=== PATIENT | male | born 1970 | race Caucasian/White ===

== ENCOUNTER 2018-10-01 11:31 | Emergency (ER) | payer MEDICAID ==
[~2018-10-01] VITALS: Ht 185.4 cm; Wt 99.0 kg
[2018-10-01] MEDS ORDERED: CefTRIAXone 2gm/D5W 50ml 50 ML IV ONE (13:20)
[2018-10-01 13:53] LABS: BASOPHILS % (AUTO) 0.3 % (0-1); EOSINOPHILS % (AUTO) 0.2 % (0-6); HEMATOCRIT 42.1 % (42.0-52.0); LYMPHOCYTES # (AUTO) 0.9 X10'3 (1.1-4.8); LYMPHOCYTES % (AUTO) 8.5 % (21-51); MEAN CORPUSCULAR HEMOGLOBIN 32.1 PG (27.0-31.0); MEAN CORPUSCULAR HGB CONC 35.5 g/dL (33.0-36.5); MEAN CORPUSCULAR VOLUME 90.4 FL (78-98); MEAN PLATELET VOLUME 7.2 FL (7.4-10.4); MONOCYTES # (AUTO) 0.8 X10'3 (0-0.9); MONOCYTES % (AUTO) 7.5 % (2-12); NEUTROPHILS # (AUTO) 8.9 X10'3 (1.8-7.7); NEUTROPHILS % (AUTO) 83.5 % (42-75); PLATELET COUNT 142 X10'3 (140-440); RED BLOOD COUNT 4.66 X10'6 (4.70-6.10); RED CELL DISTRIBUTION WIDTH 13.6 % (11.5-14.5); WHITE BLOOD COUNT 10.6 X10'3 (4.5-11.0)
[2018-10-01 14:06] LABS: GLUCOSE 107 MG/DL (70-104)
[2018-10-01 14:07] LABS: ALANINE AMINOTRANSFERASE 50 U/L (12-78); ALBUMIN 3.9 G/DL (3.4-5.0); ALKALINE PHOSPHATASE 75 IU/L (46-116); ANION GAP 11 (8-16); ASPARTATE AMINO TRANSFERASE 20 U/L (10-37); BILIRUBIN,TOTAL 0.8 MG/DL (0.1-1.0); BLOOD UREA NITROGEN 12 MG/DL (7-18); BUN/CREATININE RATIO 11.4 (5.4-32.0); CALCIUM 9.4 MG/DL (8.5-10.1); CHLORIDE 98 MMOL/L (99-107); CREATININE 1.05 MG/DL (0.60-1.10); POTASSIUM 3.9 MMOL/L (3.5-5.1); SODIUM 133 MMOL/L (135-145); TOTAL CARBON DIOXIDE 23.9 MMOL/L (24-32); TOTAL PROTEIN 7.9 G/DL (6.4-8.2); eGFR 75 ML/MIN
[2018-10-01] MEDS ORDERED: ketorolac trometh. 30mg/ml inj. IV ONE (14:50)
[2018-10-01] MEDS ORDERED: CEPH500C5 PO (15:53)
[2018-10-01 16:11] VITALS: BP 136/82
--- NOTE | 2018-10-04 12:46 | NUR ---
PT WAS CALLED FOR STATUS FOLLOW-UP, NO ANSWER, MSG LEFT TO CALL BACK FOR RESULTS AND ABX CHANGE
== END 2018-10-01 16:13 | disposition home or self-care (01) ==
LOC: ER 11:32
DX: L02.511 Cutaneous abscess of right hand (principal); L03.113 Cellulitis of right upper limb; G89.29 Other chronic pain; F17.200 Nicotine dependence, unspecified, uncomplicated; Z79.899 Other long term (current) drug therapy
CPT/HCPCS: 36415; 73120; 80053; 84145; 85025; 87070; 87077; 87186; 96365; 96375; 99284; J0696; J1885

== ENCOUNTER 2018-10-03 11:07 | Inpatient (IN) | payer MEDICAID ==
[~2018-10-03] VITALS: Ht 185.4 cm; Wt 106.0 kg
[~2018-10-03 11:07] MED LIST: CEPH500C5 PO
[2018-10-03] MEDS ORDERED: vancomycin/NS 1 GM ADD-VANTAGE 250 ML IV ONE (12:30)
[2018-10-03] MEDS ORDERED: piperacillin/tazo 3.375gm/50ml 50 ML IV ONE (12:30)
[2018-10-03 12:59] LABS: BASOPHILS % (AUTO) 0.3 % (0-1); EOSINOPHILS # (AUTO) 0.1 X10'3 (0-0.9); EOSINOPHILS % (AUTO) 0.5 % (0-6); HEMATOCRIT 40.3 % (42.0-52.0); HEMOGLOBIN 14.2 g/dl (14.0-17.9); LYMPHOCYTES # (AUTO) 0.9 X10'3 (1.1-4.8); LYMPHOCYTES % (AUTO) 7.6 % (21-51); MEAN CORPUSCULAR HEMOGLOBIN 31.5 PG (27.0-31.0); MEAN CORPUSCULAR HGB CONC 35.1 g/dL (33.0-36.5); MEAN CORPUSCULAR VOLUME 89.8 FL (78-98); MEAN PLATELET VOLUME 7.4 FL (7.4-10.4); MONOCYTES # (AUTO) 1.1 X10'3 (0-0.9); MONOCYTES % (AUTO) 9.2 % (2-12); NEUTROPHILS # (AUTO) 9.7 X10'3 (1.8-7.7); NEUTROPHILS % (AUTO) 82.4 % (42-75); PLATELET COUNT 175 X10'3 (140-440); RED BLOOD COUNT 4.49 X10'6 (4.70-6.10); RED CELL DISTRIBUTION WIDTH 13.3 % (11.5-14.5); WHITE BLOOD COUNT 11.7 X10'3 (4.5-11.0)
[2018-10-03 13:10] LABS: ALANINE AMINOTRANSFERASE 43 U/L (12-78); ALBUMIN 3.5 G/DL (3.4-5.0); ALBUMIN/GLOBULIN RATIO 0.8 (1.1-1.5); ALKALINE PHOSPHATASE 82 IU/L (46-116); ANION GAP 11 (8-16); ASPARTATE AMINO TRANSFERASE 20 U/L (10-37); BILIRUBIN,TOTAL 0.7 MG/DL (0.1-1.0); BLOOD UREA NITROGEN 9 MG/DL (7-18); BUN/CREATININE RATIO 8.6 (5.4-32.0); CHLORIDE 98 MMOL/L (99-107); CREATININE 1.05 MG/DL (0.60-1.10); GLUCOSE 114 MG/DL (70-104); POTASSIUM 3.3 MMOL/L (3.5-5.1); SODIUM 134 MMOL/L (135-145); TOTAL CARBON DIOXIDE 25.4 MMOL/L (24-32); eGFR 75 ML/MIN
[2018-10-03] MEDS ORDERED: OMEP40CA37 PO (13:52)
[2018-10-03] MEDS ORDERED: CYCL-1 PO (13:52)
[2018-10-03] MEDS ORDERED: morphine 4 MG/ML inj SYRINge IV ONE (14:25)
--- NOTE | 2018-10-03 15:28 | NUR ---
VANCO COMPLETE, PT UP AND TO BR
--- NOTE | 2018-10-03 15:41 | NUR ---
PATIENT SITIING ON BED,FAMILY AT BEDSIDE.
[2018-10-03] MEDS ORDERED: HYDR-4353 PO (16:29)
[2018-10-03] MEDS ORDERED: mag hydrox/Alum hydrox/simeth 30ml oral suspension PO PRN (16:35)
[2018-10-03] MEDS ORDERED: acetaminophen 325mg tablet PO PRN (16:35)
[2018-10-03] MEDS ORDERED: morphine 2 MG/ML inj. syringe IV PRN (16:35)
[2018-10-03] MEDS ORDERED: ondansetron/PF 4mg/2ml inj IV PRN (16:35)
[2018-10-03] MEDS ORDERED: magnesium hydroxide 30ml (MOM) UD suspension PO PRN (16:35)
[2018-10-03 17:00] VITALS: BP 126/84
--- NOTE | 2018-10-03 17:00 | NUR ---
Pt transferred from ER to 4013b via w/c to bed. Pt awake and alert. VSS. Pt reported R hand to R arm pain. [place] given for pain. R Hand red, swollen with ring finger abrasion- picture taken for chart. Elevated R hand on 2 pillows.
[2018-10-03] MEDS: normal saline 1000ml 1,000 ML IV SCH (17:19)
[2018-10-03] MEDS: HYDROcodone/acetaminophen 5mg/325mg tablet PO PRN ×2 (17:26→21:10)
[2018-10-03] MEDS ORDERED: potassium Cl 20 mEq SR tablet PO PRN (18:20)
[2018-10-03] MEDS ORDERED: potassium Cl 40MEQ/NS 500ml 500 ML IV PRN ×2 (18:20)
--- NOTE | 2018-10-03 19:00 | NUR ---
Patient in room [facility]TH[facility] 4013. I have received report from Kriss SIERRA and had the opportunity to ask questions and assume patient care.
[2018-10-03] MEDS: potassium Cl 20 mEq SR tablet PO PRN ×2 (19:13→23:06)
[2018-10-03] MEDS: clindamycin 600mg/D5W 50ml 50 ML IV SCH (19:42)
[2018-10-03] MEDS ORDERED: TRAZ-251 PO (21:21)
[2018-10-03] MEDS ORDERED: traZODone 50mg tablet PO ONE (21:55)
[2018-10-03 22:00] VITALS: BP 125/75
[2018-10-04] MEDS: clindamycin 600mg/D5W 50ml 50 ML IV SCH ×4 (01:51→20:35)
[2018-10-04] MEDS: HYDROcodone/acetaminophen 5mg/325mg tablet PO PRN ×3 (01:57→20:45)
[2018-10-04 02:00] VITALS: BP 118/74
[2018-10-04] MEDS: normal saline 1000ml 1,000 ML IV SCH ×3 (02:38→14:12)
[2018-10-04] MEDS: potassium Cl 20 mEq SR tablet PO PRN (03:19)
[2018-10-04] MEDS ORDERED: potassium CL 10mEq/100ml bag 100 ML IV PRN (03:21)
[2018-10-04 05:55] LABS: BASOPHILS % (AUTO) 0.3 % (0-1); EOSINOPHILS # (AUTO) 0.1 X10'3 (0-0.9); EOSINOPHILS % (AUTO) 0.8 % (0-6); HEMATOCRIT 34.3 % (42.0-52.0); HEMOGLOBIN 12.1 g/dl (14.0-17.9); LYMPHOCYTES # (AUTO) 1.2 X10'3 (1.1-4.8); LYMPHOCYTES % (AUTO) 15.4 % (21-51); MEAN CORPUSCULAR HEMOGLOBIN 31.6 PG (27.0-31.0); MEAN CORPUSCULAR HGB CONC 35.3 g/dL (33.0-36.5); MEAN CORPUSCULAR VOLUME 89.5 FL (78-98); MEAN PLATELET VOLUME 7.1 FL (7.4-10.4); MONOCYTES # (AUTO) 0.6 X10'3 (0-0.9); MONOCYTES % (AUTO) 7.6 % (2-12); NEUTROPHILS % (AUTO) 75.9 % (42-75); PLATELET COUNT 174 X10'3 (140-440); RED BLOOD COUNT 3.83 X10'6 (4.70-6.10); RED CELL DISTRIBUTION WIDTH 13.1 % (11.5-14.5); WHITE BLOOD COUNT 7.8 X10'3 (4.5-11.0)
[2018-10-04 06:00] VITALS: BP 119/80
--- NOTE | 2018-10-04 06:00 | NUR ---
Patient in room ORTHO 4013. I have received report from and had the opportunity to ask questions and assume patient care from MARIELA Dillard.
[2018-10-04 06:19] LABS: ALBUMIN 2.7 G/DL (3.4-5.0); ANION GAP 8 (8-16); BLOOD UREA NITROGEN 7 MG/DL (7-18); BUN/CREATININE RATIO 6.9 (5.4-32.0); CALCIUM 8.2 MG/DL (8.5-10.1); CHLORIDE 103 MMOL/L (99-107); CREATININE 1.01 MG/DL (0.60-1.10); GLUCOSE 106 MG/DL (70-104); POTASSIUM 4.1 MMOL/L (3.5-5.1); SODIUM 135 MMOL/L (135-145); eGFR 79 ML/MIN
[2018-10-04] MEDS ORDERED: CefTRIAXone 2gm/D5W 50ml 50 ML IV SCH (08:00)
[2018-10-04] MEDS: enoxaparin 40mg/0.4ml syringe SUBCUT SCH (08:36)
--- NOTE | 2018-10-04 09:18 | NUR ---
Placed 1st warm compress to pt R arm r/t swelling/cellulitis per MD verbal order for aprox 2hrs.
[2018-10-04] MEDS: levoFLOXACIN-Levaquin 500mg/D5 100 ML IV SCH (15:36)
[2018-10-04] MEDS: Potassium Cl inj 10 MEQ in normal saline 1000ml 1,000 ML IV SCH (15:37)
[2018-10-04 18:00] VITALS: BP 119/74
[2018-10-04] MEDS: lactobacillus rhamnosus 10,000 MMU CELLS/CAPSULE PO SCH (20:34)
[2018-10-04] MEDS ORDERED: traZODone 50mg tablet PO SCH (21:00)
[2018-10-04 22:00] VITALS: BP 120/74
[2018-10-05] MEDS: HYDROcodone/acetaminophen 5mg/325mg tablet PO PRN ×2 (00:55→05:14)
[2018-10-05] MEDS: clindamycin 600mg/D5W 50ml 50 ML IV SCH ×3 (02:17→14:07)
[2018-10-05 05:51] LABS: BASOPHILS % (AUTO) 0.5 % (0-1); EOSINOPHILS # (AUTO) 0.1 X10'3 (0-0.9); EOSINOPHILS % (AUTO) 1.6 % (0-6); HEMATOCRIT 34.8 % (42.0-52.0); HEMOGLOBIN 12.4 g/dl (14.0-17.9); LYMPHOCYTES # (AUTO) 1.3 X10'3 (1.1-4.8); LYMPHOCYTES % (AUTO) 21.6 % (21-51); MEAN CORPUSCULAR HEMOGLOBIN 31.9 PG (27.0-31.0); MEAN CORPUSCULAR HGB CONC 35.6 g/dL (33.0-36.5); MEAN CORPUSCULAR VOLUME 89.4 FL (78-98); MONOCYTES # (AUTO) 0.5 X10'3 (0-0.9); MONOCYTES % (AUTO) 7.8 % (2-12); NEUTROPHILS # (AUTO) 4.2 X10'3 (1.8-7.7); NEUTROPHILS % (AUTO) 68.5 % (42-75); PLATELET COUNT 204 X10'3 (140-440); RED CELL DISTRIBUTION WIDTH 13.5 % (11.5-14.5); WHITE BLOOD COUNT 6.2 X10'3 (4.5-11.0)
[2018-10-05 06:00] VITALS: BP 132/78
[2018-10-05 06:03] LABS: ALBUMIN 2.6 G/DL (3.4-5.0); ANION GAP 6 (8-16); BLOOD UREA NITROGEN 8 MG/DL (7-18); BUN/CREATININE RATIO 8.3 (5.4-32.0); CALCIUM 8.8 MG/DL (8.5-10.1); CHLORIDE 104 MMOL/L (99-107); CREATININE 0.96 MG/DL (0.60-1.10); GLUCOSE 105 MG/DL (70-104); SODIUM 138 MMOL/L (135-145); TOTAL CARBON DIOXIDE 27.8 MMOL/L (24-32); eGFR 83 ML/MIN
[2018-10-05] MEDS ORDERED: cyclobenzaprine 10mg tablet PO PRN (08:25)
[2018-10-05] MEDS ORDERED: HYDROcodone/acetaminophen 10/325mg tab PO PRN (08:25)
[2018-10-05] MEDS ORDERED: pantoprazole 40mg Tablet.DR PO SCH (08:27)
[2018-10-05] MEDS: enoxaparin 40mg/0.4ml syringe SUBCUT SCH (08:47)
[2018-10-05] MEDS: lactobacillus rhamnosus 10,000 MMU CELLS/CAPSULE PO SCH (08:48)
[2018-10-05] MEDS: Potassium Cl inj 10 MEQ in normal saline 1000ml 1,000 ML IV SCH (08:55)
[2018-10-05 10:00] VITALS: BP 106/76
[2018-10-05] MEDS: levoFLOXACIN-Levaquin 500mg/D5 100 ML IV SCH (10:23)
[2018-10-05] MEDS ORDERED: LEVO500T2 PO (10:38)
[2018-10-05] MEDS ORDERED: CLIN-5 PO (10:38)
--- NOTE | 2018-10-05 15:00 | NUR ---
Pt DCd home. All continuing Rx medications inc oral ABX called into [facility], [place], [place]. Pt denies worsening pain, SOB, resp distress, N/V, vertigo at DC. All medications administered as ordered no ase noted at DC. VSS, RR even unlabored, afebrile, HRR upon DC. All DC documents signed per protocol. Necessary DC documents sent home w/pt. Pt escorted ERNESTO by [facility] staff member. Pt ambulated independently. Pt is driving self home in personal vehicle. Pt thanked [facility] staff for his care.
[2018-10-06] MEDS ORDERED: levoFLOXACIN 500mg tablet PO SCH (11:00)
== END 2018-10-05 15:10 | disposition home or self-care (01) | DRG 383 ==
LOC: ER 11:08 → ORTHO 4S 17:08
PROVIDERS: ADMIT Family Medicine; ATTEND Internal Medicine
DX: L03.113 Cellulitis of right upper limb (principal); B95.4 Other streptococcus as the cause of diseases classified elsewhere; E87.6 Hypokalemia; G89.29 Other chronic pain; M54.9 Dorsalgia, unspecified; K21.9 Gastro-esophageal reflux disease without esophagitis; L02.511 Cutaneous abscess of right hand; Z87.891 Personal history of nicotine dependence
CPT/HCPCS: 36415; 80048; 80053; 83605; 84145; 85025; 85610; 87040; 87070; 96365; 96368; 96375; 99285; G0378; J0696; J1650; J1956; J2270; J2543; J3370; J3480; J3490; J7030